=== PATIENT | female | born 1960 | race Caucasian/White ===

== ENCOUNTER 2018-06-26 08:00 | Inpatient (IN) ==
[2018-06-26] MEDS ORDERED: D5 LR 1000 ML 1,000 ML IV ONE (08:18)
[2018-06-26] MEDS ORDERED: ANCEF 1 GRAM IV PREMIX* 1 G/50 ML BAG IV ONE (08:18)
[2018-06-26] MEDS ORDERED: HYDROGEN PEROXIDE 3% ONE (08:19)
[2018-06-26] MEDS ORDERED: BACTROBAN TOPICAL OINT ONE (08:19)
[2018-06-26] MEDS ORDERED: NAROPIN 0.75% EPI ONE (08:24)
[2018-06-26] MEDS ORDERED: FENTANYL INJ 250 mcg ONE (08:38)
[2018-06-26 08:43] VITALS: BMI 34.2
[2018-06-26] MEDS ORDERED: TORADOL 30 MG VIAL ONE (09:04)
[2018-06-26] MEDS ORDERED: DIPRIVAN VIAL ONE (09:04)
[2018-06-26] MEDS ORDERED: ROBINUL ONE (09:04)
[2018-06-26] MEDS ORDERED: XYLOCAINE 2 % (PLAIN) ONE (09:04)
[2018-06-26] MEDS ORDERED: SUPRANE IN ONE (09:04)
[2018-06-26] MEDS ORDERED: VERSED ONE (09:04)
[2018-06-26] MEDS ORDERED: QUELICIN (OR ANECTINE) ONE (09:04)
[2018-06-26] MEDS ORDERED: ZOFRAN INJ 4 MG VIAL ONE (09:04)
[2018-06-26] MEDS ORDERED: NEOSTIGMINE INJ ONE (09:04)
[2018-06-26] MEDS ORDERED: ATROPINE SULFATE ONE (09:04)
[2018-06-26] MEDS ORDERED: EPHEDRINE SULFATE INJ ONE (09:04)
[2018-06-26] MEDS ORDERED: NORCURON INJ 10 MG VIAL ONE (09:04)
[2018-06-26] MEDS ORDERED: LR 1000 ML IV 1,000 ML IV ONE (09:43)
[2018-06-26] MEDS: NS IRRIGATION 3000 ML 3,000 ML with BACITRACIN VIAL 50,000 UNIT, POLYMYXIN B SULFATE 50... IR NR ×6 (10:26→10:27)
[2018-06-26] MEDS ORDERED: NS 1000 ML 20 ML, MARCAINE 0.5% 20 ML IV NR ×2 (11:00)
[2018-06-26] MEDS ORDERED: NS IRRIGATION 1000 ML 1,000 ML with BACITRACIN VIAL 50,000 UNIT, POLYMYXIN B SULFATE 50... IR NR ×3 (11:00)
[2018-06-26] MEDS ORDERED: DILAUDID INJ ONE (12:36)
[2018-06-26] MEDS ORDERED: BENADRYL INJ 50 MG VIAL IVP PRN (12:51)
[2018-06-26] MEDS ORDERED: ZOFRAN INJ 4 MG VIAL IVP PRN ×2 (12:51→13:13)
[2018-06-26] MEDS ORDERED: REGLAN INJ 10 MG VIAL IVP PRN (12:51)
[2018-06-26] MEDS ORDERED: PHENERGAN INJ 25 MG IVP PRN (12:51)
[2018-06-26] MEDS ORDERED: DILAUDID INJ IVP PRN (12:51)
[2018-06-26] MEDS: LR 1000 ML IV 1,000 ML IV SCH (14:51)
[2018-06-26] MEDS ORDERED: ZEMURON ONE (15:17)
[2018-06-26] MEDS ORDERED: BACITRACIN VIAL ONE (15:17)
[2018-06-26] MEDS ORDERED: NS IRRIGATION 3000 ML ONE (15:17)
[2018-06-26] MEDS ORDERED: POLYMYXIN B SULFATE ONE (15:17)
--- NOTE | 2018-06-26 15:28 | RAD ---
HISTORY: Postop left knee replacement Study: Two views left knee Comparison: None FINDINGS/IMPRESSION: Total knee arthroplasty is noted with additional cortical lag screw traversing the distal femoral rachel physis. No abnormal perihardware lucency, malalignment or fracture is identified. There is surroundin g soft tissue gas and edema in keeping with recent intervention. Reported By:
[2018-06-26] MEDS: DILAUDID INJ IVP PRN ×3 (15:56→22:51)
[2018-06-26] MEDS: LOVENOX INJ 30 MG SYR SC SCH (20:37)
[2018-06-27] MEDS: DILAUDID INJ IVP PRN ×4 (02:52→18:12)
[2018-06-27] MEDS: LR 1000 ML IV 1,000 ML IV SCH ×2 (03:38→13:56)
[2018-06-27 05:28] LABS: BASOPHILS % (AUTO) 0.2 % (0.2-1.0); EOSINOPHILS % (AUTO) 0.1 % (0.9-2.9); HEMATOCRIT 34.6 % (36.0-47.0); HEMOGLOBIN 11.7 g/dL (12.0-16.0); LYMPHOCYTES # (AUTO) 0.7 X10^3/uL (1.3-2.9); LYMPHOCYTES % (AUTO) 7.8 % (21.0-51.0); MEAN CORPUSCULAR HEMOGLOBIN 28.3 pg (27.0-34.0); MEAN CORPUSCULAR HGB CONC 33.7 g/dL (33.0-35.0); MEAN CORPUSCULAR VOLUME 83.9 fL (80.0-100.0); MEAN PLATELET VOLUME 9.7 fL (7.4-11.0); MONOCYTES # (AUTO) 0.9 x10^3/uL (0.3-0.8); MONOCYTES % (AUTO) 9.1 % (0.0-13.0); NEUTROPHILS # (AUTO) 7.8 x10^3/uL (2.2-4.8); NEUTROPHILS % (AUTO) 82.8 % (42.0-75.0); PLATELET COUNT 190 X10^3/uL (150.0-450.0); RED BLOOD COUNT 4.12 X10^6/uL (3.5-5.4); RED CELL DISTRIBUTION WIDTH 14.5 % (11.6-16.5); WHITE BLOOD COUNT 9.4 X10^3/uL (3.6-10.0)
[2018-06-27 05:31] LABS: BLOOD UREA NITROGEN 14 mg/dL (7-18); CALCIUM 8.8 mg/dL (8.5-10.1); CARBON DIOXIDE 34.9 mmol/L (21-32); CHLORIDE 100 mmol/L (98-107); COR NA(FOR HYPERGLY) 140 mmol/L (136-145); CREATININE 1.17 mg/dL (0.55-1.02); SODIUM 139 mmol/L (136-145); eGFR NON BLACK RACES 50 (>60)
[2018-06-27] MEDS: LOVENOX INJ 30 MG SYR SC SCH ×2 (08:08→20:49)
[2018-06-27] MEDS: NORCO 5/325 MG TAB PO PRN (10:38)
--- NOTE | 2018-06-27 17:37 | DR.UPDATE ---
H&P Update History and Physical Update: History and Physical reviewed and patient examined. 06/26/2018 Yes with the following:
--- NOTE | 2018-06-27 17:40 | PCM.PROG ---
Progress Note - Progress Note for Day of Date of Exam: 06/27/18 - Subjective Subjective: The patient is a 57-year-old female with bilateral knee osteoarthritis. She has tried and failed all conservative management. Pt s/p l TKR per Dr. Uribe on 06/26. Pt currently co pain 03/26 this am, current pain stable, continue PT and post operative plan of care, AM labs, BP control - Past Medical Family Social History Past Med/Fam/Surg Hx: No changes since H&P Allergies: Allergies morphine Allergy (Verified 06/26/18 07:30) - Review of Systems ROS: No change since H&P - Vital Signs and I&O's Vital Signs: Temperature 97.6 F Pulse Rate [Left Brachial] 81 Pulse Rate 90 Respiratory Rate 20 Blood Pressure [Left Arm] 138/65 Blood Pressure 101/55 O2 Sat by Pulse Oximetry 96 Intake and Output: Intake & Output 06/25/18 06/26/18 06/27/18 06/28/18 11:59 11:59 11:59 11:59 Intake Total 800 / 800 3270 / 3270 2440 / 2440 Output Total 800 / 800 910 / 910 100 / 100 Balance 0 / 0 2360 / 2360 2340 / 2340 - Physical Exam Oriented: Normal Eyes: Normal Ear: Normal Nose: Normal Respiratory: Normal Cardiovascular: Normal Auscultation: Bowel Sounds: Normal Palpation: Normal Tenderness: Normal Skin: Wound Musculoskeletal: Left, Knee, Swelling, Tender Mood Description: Calm Speech Pattern: Clear, Appropriate - Laboratory and Diagnostics Result Diagrams: 06/27/18 04:07 06/27/18 04:07 Labs: Laboratory WBC 9.4 X10^3/uL (3.6-10.0) 06/27/18 04:07 RBC 4.12 X10^6/uL (3.5-5.4) 06/27/18 04:07 Hgb 11.7 g/dL (12.0-16.0) L 06/27/18 04:07 Hct 34.6 % (36.0-47.0) L 06/27/18 04:07 MCV 83.9 fL (80.0-100.0) 06/27/18 04:07 MCH 28.3 pg (27.0-34.0) 06/27/18 04:07 MCHC 33.7 g/dL (33.0-35.0) 06/27/18 04:07 RDW 14.5 % (11.6-16.5) 06/27/18 04:07 Plt Count 190 X10^3/uL (150.0-450.0) 06/27/18 04:07 MPV 9.7 fL (7.4-11.0) 06/27/18 04:07 Neut % (Auto) 82.8 % (42.0-75.0) H 06/27/18 04:07 Lymph % (Auto) 7.8 % (21.0-51.0) L 06/27/18 04:07 Cole % (Auto) 9.1 % (0.0-13.0) 06/27/18 04:07 Eos % (Auto) 0.1 % (0.9-2.9) L 06/27/18 04:07 Baso % (Auto) 0.2 % (0.2-1.0) 06/27/18 04:07 Neut # (Auto) 7.8 x10^3/uL (2.2-4.8) H 06/27/18 04:07 Lymph # (Auto) 0.7 X10^3/uL (1.3-2.9) L 06/27/18 04:07 Cole # (Auto) 0.9 x10^3/uL (0.3-0.8) H 06/27/18 04:07 Eos # (Auto) 0.0 x10^3/uL (0.0-0.2) 06/27/18 04:07 Baso # (Auto) 0.0 X10^3/uL (0.0-0.1) 06/27/18 04:07 Absolute Nucleated RBC 0.0 /100WBC 06/27/18 04:07 Sodium 139 mmol/L (136-145) 06/27/18 04:07 Corrected Sodium 140 mmol/L (136-145) 06/27/18 04:07 Potassium 4.1 mmol/L (3.5-5.1) 06/27/18 04:07 Chloride 100 mmol/L (98-107) 06/27/18 04:07 Carbon Dioxide 34.9 mmol/L (21-32) H 06/27/18 04:07 BUN 14 mg/dL (7-18) 06/27/18 04:07 Creatinine 1.17 mg/dL (0.55-1.02) H 06/27/18 04:07 Est GFR (MDRD) Af Amer > 60 (>60) 06/27/18 04:07 Est GFR (MDRD) Non-Af 50 (>60) L 06/27/18 04:07 Glucose 148 mg/dL (65-99) H 06/27/18 04:07 Calcium 8.8 mg/dL (8.5-10.1) 06/27/18 04:07 - Plan (1) S/P TKR (total knee replacement) Status: Acute Plan: pain control, PT, ortho post operative plan of care. am labs (2) Osteoarthritis of left knee Status: Acute
[2018-06-27] MEDS: MILK OF MAGNESIA PO SCH (20:48)
[2018-06-27] MEDS: COLACE CAP 100 MG PO SCH (20:49)
[2018-06-28] MEDS: NORCO 5/325 MG TAB PO PRN ×4 (00:51→19:30)
[2018-06-28 05:13] LABS: BASOPHILS % (AUTO) 0.5 % (0.2-1.0); EOSINOPHILS % (AUTO) 0.2 % (0.9-2.9); HEMATOCRIT 29.1 % (36.0-47.0); HEMOGLOBIN 10.1 g/dL (12.0-16.0); LYMPHOCYTES % (AUTO) 12.7 % (21.0-51.0); MEAN CORPUSCULAR HEMOGLOBIN 29.1 pg (27.0-34.0); MEAN CORPUSCULAR HGB CONC 34.7 g/dL (33.0-35.0); MEAN CORPUSCULAR VOLUME 83.8 fL (80.0-100.0); MONOCYTES # (AUTO) 0.8 x10^3/uL (0.3-0.8); MONOCYTES % (AUTO) 10.4 % (0.0-13.0); NEUTROPHILS % (AUTO) 76.2 % (42.0-75.0); PLATELET COUNT 138 X10^3/uL (150.0-450.0); RED BLOOD COUNT 3.47 X10^6/uL (3.5-5.4); RED CELL DISTRIBUTION WIDTH 14.2 % (11.6-16.5); WHITE BLOOD COUNT 7.8 X10^3/uL (3.6-10.0)
[2018-06-28 05:17] LABS: BLOOD UREA NITROGEN 12 mg/dL (7-18); CALCIUM 8.6 mg/dL (8.5-10.1); CARBON DIOXIDE 35.5 mmol/L (21-32); CHLORIDE 101 mmol/L (98-107); COR NA(FOR HYPERGLY) 140 mmol/L (136-145); SODIUM 139 mmol/L (136-145); eGFR NON BLACK RACES > 60 (>60)
[2018-06-28] MEDS: LR 1000 ML IV 1,000 ML IV SCH ×2 (05:47→22:13)
[2018-06-28] MEDS: LOVENOX INJ 30 MG SYR SC SCH ×2 (09:30→21:13)
[2018-06-28] MEDS: MILK OF MAGNESIA PO SCH ×2 (09:30→21:11)
--- NOTE | 2018-06-28 11:51 | RAD ---
HISTORY: Routine rehab placement status post recent knee replacement Study: Single-view of the chest Comparison: June 22, 2000 Findings: The trachea is midline. The cardiac silhouette is unremarkable. The lungs are clear without focal i nfiltrate or effusion. The aorta is partially calcified and tortuous. Postoperative changes of the le ft shoulder are again noted. IMPRESSION: 1. No acute cardiopulmonary disease. Reported By:
--- NOTE | 2018-06-28 11:58 | OR.GENERIC ---
Post-Op Note Generic - Post-Op Note Operative Report: PREOPERATIVE DIAGNOSIS: Degenerative arthritis of the left knee. POSTOPERATIVE DIAGNOSIS: Degenerative arthritis of the left knee. PROCEDURE PERFORMED: Total left knee replacement BLOOD LOSS: 150 cc. DATE OF SURGERY- 06/26/2018 ANESTHESIA: General. IMPLANT USED FOR PROCEDURE: Geovani Triathlon size 6 femur on the left with #5 size peg tibial tray, a #11 mm polyethylene insert and this a Posterior stabilized component. 33 size patella. GROSS INTRAOPERATIVE FINDINGS: Degenerative raza of three compartments of the trochlea, the medial, as well as the lateral femoral condyles as well was the plateau. HISTORY: This is a 57-year-old female with complaints of left knee pain for several years and increased intensity in the past several months where it has affected her activities of daily living. She attempted conservative treatment, which includes anti-inflammatory medications as well as cortisone and Synvisc. This has only provided her with temporary relief. It is for that reason, she elected to undergo the above-named procedure. All risks as well as complications were discussed with the patient, which include, but are not limited to infection, deep vein thrombosis, pulmonary embolism, need for further surgery, and further pain. she has agreed to undergo this procedure and a consent was obtained preoperatively. PROCEDURE: The patient was wheeled back to operating room and was placed supine on the operating room table. At this time, a nonsterile tourniquet was placed on the left upper thigh, but not inflated. An Esmarch was then used to exsanguinate the extremity and the left extremity was then prepped and draped in the usual sterile fashion for this procedure. The tourniquet was then inflated to 325 mmHg. At this time, a standard midline incision was made. medial parapatellar arthrotomy was completed. medial release of proximl tibia was kept to minimal due to valgus knee. , fat pad excision, ant femoral synovium excision was ompleted. Medail and lateral meniscua and ACL and PCL was excised.the patella was everted. At this time with a better exposure of the proximal tibia, we placed external tibial guide. This was placed with longitudinal axis of the tibia and carefully positioned in order to obtain an optimal cut for the proximal tibia. At this time with careful soft tissue retraction and protection, an oscillating saw was used to make a proximal tibial osteotomy. Prior to the osteotomy, the cut was checked with a depth gauge in order to assure appropriate bony resection. At this time, I then used a drill to cannulate the distal femoral canal in order to place the intramedullary guide. Distal femroal osteotomy was completed. siz 6 femur was determined. anterior notching with size 5 was noticed. It was fixed witha cancellous screw with washer. Epicondylar axis was determined. 4 in 1 block placed and bone cuts complted. posterior osteophytes removed with osteotome and curette. box cut finished. The block was then removed and an osteotome was then used to remove all the bony cut pieces. Once this was removed, we then implanted our trial components of size 6 to the femur and a size 5 mm tibial tray with 11 mm plastic articulating surface. The knee was taken through range of motion and revealed excellent femorotibial articulation. The patella was prepared free hand and its inital thickness maintained. At this time, the prosthesis was removed. A Elizabeth retractor was then reinserted and replaced peg tibial tray in order to peg the proximal tibia. Once the drill holes were performed, we then copiously irrigated the wound and then suctioned it dry to get ready and prepped for cementation of the drilled components. At this time, polymethyl methacrylate cement was then mixed. The cement was placed on the tibial surface as well as the underneath surface of the component. The component was then placed and impacted with excess cement removed. In a similar fashion, the femoral and atellar component was also placed. A 11 mm plastic tray was then placed and the leg held in full extension and compression in order to obtain adequate bony cement content. Once the cement was fully hardened , the knee was flexed and a small osteotome was used to remove any extruding cement from around the prosthesis of the bone. Once this was performed, copious irrigation was used to irrigate the wound and the wound was then suctioned dry. We decided to go with a #11 mm polyethylene tray. At this time, this was placed to the tibial articulation and then left in place. This was rechecked with careful attention to detail with checking no soft tissue interpositioned between the polyethylene tray and the metal tray of the tibia. The knee was again taken through range of motion and revealed excellent tracking of the patella with good femur and tibial contact. A drain was placed and cut to length. At this time, the knee was irrigated and copiously suction dried. #1-0 Ethibond suture was then used to approximate the medial parapatellar arthrotomy in figure -of-eight fashion. A tight capsular closure was performed. This was reinforced with a #1-0 running Vicryl suture. At this time, the knee was again taken through range of motion to assure tight capsular closure. At this time, copious irrigation was used to irrigate the superficial wound. #2-0 Vicryl was used to approximate the wound with [id number] inverted suture. The skin was then approximated with jacqueline. The leg was then cleansed. Sterile dressing consisting of Adaptic, 4x4, ABDs, and Kerlix roll were then applied. At this time, the patient was extubated and transferred to recovery in stable condition. Prognosis is good for this patient.post op xrays were satisfactory.
--- NOTE | 2018-06-28 12:03 | PCM.PROG ---
Progress Note - Progress Note for Day of Date of Exam: 06/28/18 - Subjective Subjective: postoperative Patient doing well. Stable. Afebrile. H and H normal. Getting physical therapy. Pain management control with by mouth pain medications. GREEN very minimal input. Dressing clean and dry. Dressing change today. Sterile dressing wound clean and dry. No knee effusion knee effusion noted postsurgical. No redness or induration noted. Extension complete. Flexion 90. Stable anteroposterior mediolateral. Postoperative x- rays shows a well aligned total knee arthroplasty. A cancellous screw fixing the supracondylar notch and in place. Currently getting NORCO 02/16/25 every 4- 6. DARVOCET only for breakthrough pain. She has used it only once since yesterday. Getting LOVENOX 30 twice daily. Using RAMON hose and SCDs. - Past Medical Family Social History Past Med/Fam/Surg Hx: No changes since H&P Allergies: Allergies morphine Allergy (Verified 06/26/18 07:30) - Review of Systems ROS: No change since H&P - Vital Signs and I&O's Vital Signs: Temperature 98.2 F Pulse Rate [Left Brachial] 83 Pulse Rate 90 Respiratory Rate 20 Blood Pressure [Left Arm] 162/77 Blood Pressure 101/55 O2 Sat by Pulse Oximetry 98 Intake and Output: Intake & Output 06/25/18 06/26/18 06/27/18 06/28/18 23:59 23:59 23:59 23:59 Intake Total 3240 / 3240 4119 / 4119 150 / 150 Output Total 1630 / 1630 260 / 260 50 / 50 Balance 1610 / 1610 3859 / 3859 100 / 100 - Physical Exam Oriented: Normal Eyes: Normal Ear: Normal Nose: Normal Respiratory: Normal Cardiovascular: Normal Auscultation: Bowel Sounds: Normal Tenderness: Normal Skin: Wound Musculoskeletal: Left, Knee, Swelling, Tender Mood Description: Calm Speech Pattern: Clear, Appropriate - Laboratory and Diagnostics Result Diagrams: 06/28/18 04:15 06/28/18 04:15 Labs: Laboratory WBC 7.8 X10^3/uL (3.6-10.0) 06/28/18 04:15 RBC 3.47 X10^6/uL (3.5-5.4) L 06/28/18 04:15 Hgb 10.1 g/dL (12.0-16.0) L 06/28/18 04:15 Hct 29.1 % (36.0-47.0) L 06/28/18 04:15 MCV 83.8 fL (80.0-100.0) 06/28/18 04:15 MCH 29.1 pg (27.0-34.0) 06/28/18 04:15 MCHC 34.7 g/dL (33.0-35.0) 06/28/18 04:15 RDW 14.2 % (11.6-16.5) 06/28/18 04:15 Plt Count 138 X10^3/uL (150.0-450.0) L 06/28/18 04:15 MPV 10.0 fL (7.4-11.0) 06/28/18 04:15 Neut % (Auto) 76.2 % (42.0-75.0) H 06/28/18 04:15 Lymph % (Auto) 12.7 % (21.0-51.0) L 06/28/18 04:15 Summers % (Auto) 10.4 % (0.0-13.0) 06/28/18 04:15 Eos % (Auto) 0.2 % (0.9-2.9) L 06/28/18 04:15 Baso % (Auto) 0.5 % (0.2-1.0) 06/28/18 04:15 Neut # (Auto) 6.0 x10^3/uL (2.2-4.8) H 06/28/18 04:15 Lymph # (Auto) 1.0 X10^3/uL (1.3-2.9) L 06/28/18 04:15 Summers # (Auto) 0.8 x10^3/uL (0.3-0.8) 06/28/18 04:15 Eos # (Auto) 0.0 x10^3/uL (0.0-0.2) 06/28/18 04:15 Baso # (Auto) 0.0 X10^3/uL (0.0-0.1) 06/28/18 04:15 Absolute Nucleated RBC 0.1 /100WBC 06/28/18 04:15 Sodium 139 mmol/L (136-145) 06/28/18 04:15 Corrected Sodium 140 mmol/L (136-145) 06/28/18 04:15 Potassium 3.6 mmol/L (3.5-5.1) 06/28/18 04:15 Chloride 101 mmol/L (98-107) 06/28/18 04:15 Carbon Dioxide 35.5 mmol/L (21-32) H 06/28/18 04:15 BUN 12 mg/dL (7-18) 06/28/18 04:15 Creatinine 1.00 mg/dL (0.55-1.02) 06/28/18 04:15 Est GFR (MDRD) Af Amer > 60 (>60) 06/28/18 04:15 Est GFR (MDRD) Non-Af > 60 (>60) 06/28/18 04:15 Glucose 140 mg/dL (65-99) H 06/28/18 04:15 Calcium 8.6 mg/dL (8.5-10.1) 06/28/18 04:15 - Plan (1) S/P TKR (total knee replacement) Status: Acute Plan: 1. Tablet NORCO 02/16/25 one to 2 tabs every 6-8 hours/when necessary. # 2. Tablet GABAPENTIN 100 every 8. 3. Tablet IBUPROFEN 800 every 8. 4. Drain tube was removed. 5. Dressing change. 6. Continue PT OT-nonweightbearing to further advise. Strengthening and range of motion exercises. Patient can be discharged from orthopedic side. Postoperative instructions. #1. Nonweightbearing to further advice knee O line #2. Dressing change once a week. #3. Anterior deep vein thrombosis prophylaxis LOVENOX 30 every 12 for 21 days. Continue using RAMON hoses for 6 weeks. #4. Range of motion and strengthening exercises with the help of PT OT. #5. Take medications as prescribed. #6. Follow-up at 3 weeks.. X-rays before the follow-up. [place] to be removed at 3 weeks.
[2018-06-28] MEDS: NEURONTIN CAP 100 MG PO SCH ×2 (13:43→21:11)
[2018-06-28] MEDS: COLACE CAP 100 MG PO SCH (21:11)
[2018-06-29] MEDS: NORCO 5/325 MG TAB PO PRN (00:56)
[2018-06-29] MEDS ORDERED: POTASSIUM CHLORIDE LIQ 20 MEQ UDC PO PRN (02:33)
[2018-06-29] MEDS ORDERED: K-LYTE EFFERVESCENT PO PRN (02:33)
[2018-06-29] MEDS: MOTRIN TAB 800 MG PO PRN ×2 (04:40→14:49)
[2018-06-29] MEDS: NEURONTIN CAP 100 MG PO SCH ×2 (05:26→15:02)
[2018-06-29 05:28] LABS: BASOPHILS % (AUTO) 0.6 % (0.2-1.0); EOSINOPHILS # (AUTO) 0.1 x10^3/uL (0.0-0.2); EOSINOPHILS % (AUTO) 1.3 % (0.9-2.9); HEMATOCRIT 26.6 % (36.0-47.0); HEMOGLOBIN 9.1 g/dL (12.0-16.0); LYMPHOCYTES # (AUTO) 1.3 X10^3/uL (1.3-2.9); MEAN CORPUSCULAR HEMOGLOBIN 28.9 pg (27.0-34.0); MEAN CORPUSCULAR HGB CONC 34.4 g/dL (33.0-35.0); MEAN CORPUSCULAR VOLUME 84.2 fL (80.0-100.0); MEAN PLATELET VOLUME 9.7 fL (7.4-11.0); MONOCYTES # (AUTO) 0.6 x10^3/uL (0.3-0.8); MONOCYTES % (AUTO) 9.2 % (0.0-13.0); NEUTROPHILS # (AUTO) 4.5 x10^3/uL (2.2-4.8); NEUTROPHILS % (AUTO) 68.9 % (42.0-75.0); PLATELET COUNT 134 X10^3/uL (150.0-450.0); RED BLOOD COUNT 3.16 X10^6/uL (3.5-5.4); WHITE BLOOD COUNT 6.5 X10^3/uL (3.6-10.0)
[2018-06-29 05:49] LABS: BLOOD UREA NITROGEN 9 mg/dL (7-18); CALCIUM 8.3 mg/dL (8.5-10.1); CHLORIDE 103 mmol/L (98-107); COR NA(FOR HYPERGLY) 141 mmol/L (136-145); CREATININE 0.94 mg/dL (0.55-1.02); SODIUM 140 mmol/L (136-145); eGFR NON BLACK RACES > 60 (>60)
[2018-06-29] MEDS: LR 1000 ML IV 1,000 ML IV SCH (09:21)
[2018-06-29] MEDS: MILK OF MAGNESIA PO SCH (09:42)
[2018-06-29] MEDS: LOVENOX INJ 30 MG SYR SC SCH (09:42)
[2018-06-29 13:43] VITALS: BP 137/70
== END 2018-06-29 15:15 | disposition home or self-care (01) | DRG 470 ==
LOC: MED/SURG 08:00 → EDUNIT# 09:30
PROVIDERS: ADMIT Orthopaedic Surgery; ATTEND Internal Medicine
DX: M17.12 Unilateral primary osteoarthritis, left knee; M25.562 Pain in left knee; R26.89 Other abnormalities of gait and mobility
CPT/HCPCS: 36415; 64447; 71010; 71045; 73560; 80048; 83735; 85025; 94762; 97110; 97163; 97167; 97530; 97535; A4216; A4222; J0330; J0461; J0690; J1170; J1650; J1885; J2250; J2405; J2704; J2710; J2795; J3010; J3490; J7120; J7121; J8499